=== PATIENT | female | born 1970 | race Caucasian/White ===

== ENCOUNTER → 2019-01-07 | Outpatient (CLI) | payer BC | LOC: RAD 12:09 | DX: Z12.31 Encounter for screening mammogram for malignant neoplasm of breast (principal); M47.812 Spondylosis without myelopathy or radiculopathy, cervical region; M25.78 Osteophyte, vertebrae; M48.02 Spinal stenosis, cervical region; M25.531 Pain in right wrist; M54.5 Low back pain; V89.2XXA Person injured in unspecified motor-vehicle accident, traffic, initial encounter ==

== ENCOUNTER → 2019-01-20 | Outpatient (CLI) | payer BC | LOC: MRI 10:05 | DX: M50.121 Cervical disc disorder at C4-C5 level with radiculopathy (principal); M48.02 Spinal stenosis, cervical region ==

== ENCOUNTER → 2019-02-10 | Outpatient (CLI) | payer BC ==
[~2019-02-10] VITALS: Ht 160 cm; Wt 59.0 kg
[~2019-02-10] MED LIST: HYDROXYZINE HCL25 M1 PO; NALTREXONE HCL50 MG PO; NEURONTIN 300300 M1 PO; OMEPRAZOLE40 MG PO; SERTRALINE HCL100 MG PO; TRAZODONE HCL100 MG PO
[2019-02-10 10:10] VITALS: BP 112/76
--- NOTE | 2019-02-10 10:39 | NUR ---
Pain Clinic Assessment: 1. History of Osteoarthritis: NONE History of Rheumatoid Arthritis: NONE 2. Height: 5 ft. 3 in. 160.0 cm. Weight: 130.0 lb. oz. 58.968 kg. Patient's BMI: 23.0 3. Vital Signs: BP: 112/76 Pulse: 70 Resp: 12 Temp: 02 Sat: 100 ECG Mon: 4. Pain Intensity: 8 5. Fall Risk: Dizziness: Y Needs help standing or walking: N Fallen in the last 3 months: N Fall risk comments: 6. Patient on Blood Thinner: None 7. History of Hypertension: Y 8. Opioid Therapy greater than 6 weeks: N Opiate Contract Signed: 9. Risk Assessment Tool Provided: 10. Functional Assessment Tool: 11. Recreational Drug Use: Past greater than 3 mos Drug Type: MJ Tobacco Use: Former Smoker Tobacco Type: Cigarettes Amount or Packs/day: How Many Years: Alcohol Use: Past use Frequency: Quant:
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
== END ==
LOC: PAIN 06:39
DX: M50.123 Cervical disc disorder at C6-C7 level with radiculopathy (principal); M47.22 Other spondylosis with radiculopathy, cervical region; G89.4 Chronic pain syndrome; I10 Essential (primary) hypertension; K21.9 Gastro-esophageal reflux disease without esophagitis; Z79.899 Other long term (current) drug therapy; Z88.1 Allergy status to other antibiotic agents; Z87.11 Personal history of peptic ulcer disease

== ENCOUNTER → 2019-04-21 | Outpatient (CLI) | payer BC ==
[~2019-04-21] VITALS: Ht 160 cm; Wt 63.3 kg
[~2019-04-21] MED LIST changes: +REMERON15 MG PO
[2019-04-21 12:44] VITALS: BP 121/80
--- NOTE | 2019-04-21 13:04 | NUR ---
Pain Clinic Assessment: 1. History of Osteoarthritis: NONE History of Rheumatoid Arthritis: NONE 2. Height: 5 ft. 3 in. 160.0 cm. Weight: 139.6 lb. oz. 63.322 kg. Patient's BMI: 24.7 3. Vital Signs: BP: 121/80 Pulse: 72 Resp: 16 Temp: 02 Sat: 98 ECG Mon: 4. Pain Intensity: 7-8 5. Fall Risk: Dizziness: N Needs help standing or walking: N Fallen in the last 3 months: N Fall risk comments: 6. Patient on Blood Thinner: None 7. History of Hypertension: Y 8. Opioid Therapy greater than 6 weeks: N Opiate Contract Signed: 9. Risk Assessment Tool Provided: 10. Functional Assessment Tool: 11. Recreational Drug Use: Past greater than 3 mos Drug Type: Tobacco Use: Former Smoker Tobacco Type: Amount or Packs/day: How Many Years: Alcohol Use: Past use Frequency: Quant:
--- NOTE | 2019-04-22 08:14 | HPC ---
[address] [address] PAIN MANAGEMENT CONSULTATION Name: SUMIT CLINE Room #: REG [facility]..#: [id number] Admission: 04/21/19 Attend Phys: Kalen Lopez DO Discharge: Date of : 74 Report #: [id number] THIS REPORT FOR: //name// CC: Kalen Summers MD DATE OF SERVICE: 04/21/2019 REFERRING PHYSICIAN: Gilbert Dyer MD CHIEF COMPLAINT: Bilateral upper extremity pain. HISTORY OF PRESENT ILLNESS: As you know, the patient is a 49-year-old female who has returned today in followup visit requesting to undergo cervical epidural injection under fluoroscopic guidance. The patient indicates a pain level of 8-9/10 today. She states pain is constant, shooting, numbness, tingling, pins and needles and electrical in sensation, exacerbated with activity, improves with stretching. She was last seen in our clinic on 02/10/2019, diagnosed with cervical radiculopathy secondary to the displacement of a cervical intervertebral disk. She also suffers from cervical spondylosis with radicular symptoms leading to axial cervical spine pain. At that visit, we discussed treatment options, she chose to consider those options before moving forward. She returns today requesting to undergo this proposed cervical epidural injection to address her 8/10 pain. ALLERGIES: AZITHROMYCIN. CURRENT MEDICATIONS: Mirtazapine, omeprazole, sertraline, gabapentin, trazodone, naltrexone, hydroxyzine. SOCIAL HISTORY: The patient denies tobacco, alcohol, IV or illicit drug use. She has been out of workforce since 2003, not receiving workmen's compensation. She is not receiving disability income and reports she is not in litigation in regards to pain. IMAGING: There is no new imaging available. PHYSICAL EXAMINATION: VITAL SIGNS: Blood pressure 121/80, pulse is 72, respiratory rate 16 and unlabored. The patient is 98% on room air. Height 5 feet 3 inches tall, weight 139.6 pounds, BMI calculated 24.7. GENERAL: Well-developed, well-nourished, well-hydrated 49-year-old female, appearing her stated age. Pain is rated at 7-8/10. HEENT: Normocephalic, atraumatic. Pupils equal, round, [place] [address] PAIN MANAGEMENT CONSULTATION Name: SUMIT CLINE Room #: REG G[facility] GilliamGenny#: [id number] Admission: 04/21/19 Attend Phys: Kalen Lopez DO Discharge: Date of : 74 Report #: [id number] EXTREMITIES: Show no clubbing, no cyanosis, and no edema. MUSCULOSKELETAL: Upper extremity strength appears equal and symmetrical 5/5. She is intact to light touch from C5-T1 dermatomes. Muscle bulk and tone equal and symmetrical in upper extremities. Spurling's test is equivocal. Tendinous reflexes are slightly increased on the right. ASSESSMENT: 1. Cervical radiculopathy. 2. Displacement of cervical intervertebral disk with radiculopathy. 3. Cervical spondylosis with radiculopathy. 4. Cervical degeneration. 5. Chronic intractable pain. PLAN: 1. The patient has returned today in followup visit requesting to undergo the cervical epidural injection proposed at our visit of 02/10/2019. The patient has considered her options and does wish to undergo the procedure today. I advised the patient of the risks and the benefits of a cervical epidural injection. These risks include but are not necessarily limited to bleeding, bruising, infection, worsening pain, no relief of pain, also risk of temporary or permanent muscle weakness, temporary or permanent nerve damage, possible paralysis, post-dural puncture headache and . The patient states understood and wished to proceed. 2. No medication changes made at today's visit. The patient will continue current medical therapy as previously prescribed. 3. We will see the patient back in followup visit on an as-needed basis for possible next in the series of cervical epidural injections. PROCEDURE NOTE DESCRIPTION OF PROCEDURE: C7-T1 cervical epidural steroid injection under fluoroscopic guidance. This is the first procedure of the first series that the patient is undergoing. After obtaining written consent, the patient was taken back to the fluoroscopy suite and placed in a prone position with separate pillows under chest and forehead to decrease cervical lordosis. The skin overlying the cervical area was prepped and draped in an aseptic fashion. The C7-T1 vertebral interspace was identified by AP fluoroscopy. The skin and subcutaneous tissue overlying the target site of injection was anesthetized using 3 mL of 1% lidocaine. A 20-gauge, 3.5-inch Tuohy needle was advanced under fluoroscopic guidance toward the epidural space using a midline approach. The epidural space was identified using a loss of resistance to air technique. After negative aspiration for heme or cerebrospinal fluid, a total of 1 mL of Omnipaque was [facility] [address] [place] [address] PAIN MANAGEMENT CONSULTATION Name: SUMIT CLINE [id number] Admission: 04/21/19 Attend Phys: Kalen Lopez DO Discharge: Date of : 74 Report #: [id number] injected. A cervical epidurogram was confirmed using AP and oblique fluoroscopy. After negative aspiration for heme or cerebrospinal fluid, 5 mL of a solution containing 2 mL, 40 mg per mL, 80 mg total triamcinolone and 3 mL of lidocaine 1% was injected in increments. Contrast spread was noted from posterior epidural space. The needle was then retracted approximately usp and the needle track was flushed with 1 mL of 1% lidocaine. There were no apparent new sensory deficits in the upper extremities present following the procedure. A sterile bandage was placed over the injection site. The heart rate, pulse oximetry and blood pressure were continuously monitored after the procedure. There were no apparent complications. The patient tolerated the procedure well and was carefully escorted in the recovery room in stable condition. After meeting discharge criteria, the patient was discharged home. <ELECTRONICALLY SIGNED> By: Kalen Lopez DO 04/22/19 0814 [id number] Kalen Lopez DO /nt
== END | disposition home or self-care (01) ==
LOC: PAIN 02-17 06:44
DX: M50.10 Cervical disc disorder with radiculopathy, unspecified cervical region (principal); M47.22 Other spondylosis with radiculopathy, cervical region; G89.29 Other chronic pain; Z88.8 Allergy status to other drugs, medicaments and biological substances; Z79.899 Other long term (current) drug therapy; Z98.890 Other specified postprocedural states; Z87.891 Personal history of nicotine dependence

== ENCOUNTER → 2019-06-02 | Outpatient (CLI) | payer BC ==
[~2019-06-02] VITALS: Ht 160 cm; Wt 59.3 kg
[~2019-06-02] MED LIST changes: +HYDROCHLOROTH12.5 M1 PO; +PRINIVIL20 MG PO
--- NOTE | ~2019-06-02 | HPC ---
[facility] [place] [address] PAIN MANAGEMENT CONSULTATION Name: SUMIT CLINE Room #: REG [facility] MSabine.#: [id number] Admission: 06/02/19 Attend Phys: Kalen Lopez DO Discharge: Date of : 74 Report #: [id number] THIS REPORT FOR: //name// CC: Kalen Summers MD DATE OF SERVICE: 06/02/2019 CHIEF COMPLAINT: Bilateral upper extremity pain, chronic neck pain. HISTORY OF PRESENT ILLNESS: As you know, the patient is a 49-year-old female who returns today in followup visit reporting a pain score of around 7/10. She last was seen in our clinic on 04/21/2019 undergoing a cervical epidural injection, which provided near 90% improvement in overall pain. She does report that she has had some increased vaginal bleeding after the injection and is being evaluated by her PCP. It is not unusual to have females at her age have increased bleeding with steroid exposures, though I recommend the patient follow up with Gynecology specifically for evaluation as there is a potential the patient has endometrial proliferation and needs to be evaluated more carefully. She returns today in followup visit requesting a cervical epidural injection under fluoroscopic guidance to address her recurrent neck pain. She indicates pain has progressively worsened. She states the pain is constant, shooting, numbness, tingling, pins and needles, electrical like sensation, exacerbated with activity, improves with stretching, and previous epidural injection. She returns with no injury, no trauma, requesting next in a series of epidural injections. ALLERGIES: ERYTHROMYCIN. CURRENT MEDICATIONS: Mirtazapine, omeprazole, sertraline, gabapentin, trazodone, naltrexone, hydroxyzine. SOCIAL HISTORY: The patient denies tobacco, alcohol, IV or illicit drug use. She has been out of workforce since 2003. She is unaccompanied today. IMAGING: There is no new imaging available. PHYSICAL EXAMINATION: VITAL SIGNS: Blood pressure 144/101, pulse is 87, respiratory rate 18 and unlabored. The patient is 97% on room air. Height 5 feet 3 inches tall, weighs 130.8 pounds, BMI calculated 23.2. GENERAL: Well-developed, well-nourished, well-hydrated 49-year-old female appearing stated age, pain is rated around 7/10. HEENT: Normocephalic, atraumatic. Pupils equal, round, reactive to light. [address] [address] PAIN MANAGEMENT CONSULTATION Name: SUMIT CLINE [id number] Admission: 06/02/19 Attend Phys: Kalen Lopez DO Discharge: Date of : 74 Report #: [id number] EXTREMITIES: Show no clubbing, no cyanosis, and no edema. MUSCULOSKELETAL: Upper extremity strength is symmetrical 5/5, intact to light touch from C5-T1 dermatomes. Muscle bulk and tone equal and symmetrical in comparing upper extremities. Spurling's test is equivocal. ASSESSMENT: 1. Cervical radiculopathy. 2. Displacement of cervical intervertebral disk with radiculopathy. 3. Cervical spondylosis with radiculopathy. 4. Cervical degeneration. 5. Chronic intractable pain. 6. Essential hypertension. 7. Excessive vaginal bleeding. PLAN: 1. The patient has returned today in followup visit where we have discussed the effects of steroids on females of her age range. There is a potential that the patient has some endometrial proliferation and needs to be evaluated by Gynecology. The fact that the patient had a recurrence of spotting and bleeding from the vagina would indicate that there is likely some changes within her hormonal balance affected by the steroid medication. I did advise the patient that undergoing next in the series of epidural injections could cause further bleeding issues. If this is the case, the patient needs to follow up with Gynecology immediately. I do understand the primary care team is evaluating the patient, but gynecological evaluation is necessary. 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 2. The patient's blood pressure noted to be elevated today 147/101. This is not related to pain as her heart rate is not elevated. The patient will need to follow up with her PCP to make adjustments in her antihypertensive treatment. Blood pressure at our last visit was 121/80. Prior to that visit, the patient's blood pressure was 112/76. This does not appear to be stress related issue. She will need to follow up with her PCP. 3. The patient has been consented and wishes to undergo a cervical epidural injection under fluoroscopic guidance. She has been advised risks and benefits of the procedure. These risks include, but are not necessarily limited to bleeding, bruising, infection, worsening of pain, no relief of pain, also risk of temporary or permanent muscle weakness, temporary or permanent nerve damage, possible paralysis, post-dural puncture, headache and . The patient states she understood and wished to proceed. 4. No medication changes made at today's visit. The patient will continue current medical therapy as previously prescribed. 5. We will see the patient back in followup visit on an as needed basis for the third and final in the series of cervical epidural injections. PROCEDURE NOTE [address] [address] PAIN MANAGEMENT CONSULTATION Name: SUMIT CLINE Room #: REG GIL Rosario#: [id number] Admission: 06/02/19 Attend Phys: Kalen Lopez DO Discharge: Date of : 74 Report #: [id number] DESCRIPTION OF PROCEDURE: C7-T1 cervical epidural steroid injection under fluoroscopic guidance. This is the second procedure of the first series that the patient is undergoing. After obtaining written consent, the patient was taken back to the fluoroscopy suite and placed in a prone position with separate pillows under chest and forehead to decrease cervical lordosis. The skin overlying the cervical area was prepped and draped in an aseptic fashion. The C7-T1 vertebral interspace was identified by AP fluoroscopy. The skin and subcutaneous tissue overlying the target site of injection was anesthetized using 3 mL of 1% lidocaine. A 20-gauge 3-1/2 inch Tuohy needle was advanced under fluoroscopic guidance toward the epidural space using a midline approach. The epidural space was identified using a loss of resistance to air technique. After negative aspiration for heme or cerebrospinal fluid, a total of 1 mL of Omnipaque was injected. A cervical epidurogram was confirmed using AP and oblique fluoroscopy. After negative aspiration for heme or cerebrospinal fluid, 5 mL of a solution containing 2 mL 40 mg per mL, 80 mg total triamcinolone along with 3 mL of lidocaine 1% was injected in increments. Contrast spread was noted from posterior epidural space. The needle was then retracted approximately fpc and the needle track was flushed with 1 mL of 1% lidocaine. There were no apparent new sensory deficits in the upper extremities present following the procedure. A sterile bandage was placed over the injection site. The heart rate, pulse oximetry and blood pressure were continuously monitored after the procedure. There were no complications. The patient tolerated the procedure well and was carefully escorted in the recovery room in stable condition. After meeting discharge criteria, the patient was discharged home. By: [id number] Kalen Lopez DO /nt
[2019-06-02 12:33] VITALS: BP 144/101
--- NOTE | 2019-06-02 12:41 | NUR ---
Pain Clinic Assessment: 1. History of Osteoarthritis: NONE History of Rheumatoid Arthritis: NONE 2. Height: 5 ft. 3 in. 160.0 cm. Weight: 130.8 lb. oz. 59.330 kg. Patient's BMI: 23.2 3. Vital Signs: BP: 144/101 Pulse: 87 Resp: 18 Temp: 02 Sat: 97 ECG Mon: 4. Pain Intensity: 7 5. Fall Risk: Dizziness: N Needs help standing or walking: N Fallen in the last 3 months: N Fall risk comments: 6. Patient on Blood Thinner: None 7. History of Hypertension: Y 8. Opioid Therapy greater than 6 weeks: N Opiate Contract Signed: 9. Risk Assessment Tool Provided: 10. Functional Assessment Tool: 11. Recreational Drug Use: Past greater than 3 mos Drug Type: Tobacco Use: Former Smoker Tobacco Type: Amount or Packs/day: How Many Years: Alcohol Use: Past use Frequency: Quant:
[2019-06-02 13:00] VITALS: BP 138/94
== END | disposition home or self-care (01) ==
LOC: PAIN 06:57
DX: M47.22 Other spondylosis with radiculopathy, cervical region (principal); M50.30 Other cervical disc degeneration, unspecified cervical region; M50.20 Other cervical disc displacement, unspecified cervical region; G89.29 Other chronic pain; I10 Essential (primary) hypertension; Z88.8 Allergy status to other drugs, medicaments and biological substances; Z79.899 Other long term (current) drug therapy; Z98.890 Other specified postprocedural states

== ENCOUNTER 2020-01-21 13:38 | Emergency (ER) | payer OTHER ==
[~2020-01-21] VITALS: Ht 157.5 cm; Wt 56.2 kg
[2020-01-21 13:46] VITALS: BP 172/93
[2020-01-21] MEDS ORDERED: NORCO 7.5-3251 EACH PO (14:17)
[2020-01-21] MEDS ORDERED: PREDNISONE 20 M20 MG PO (14:17)
[2020-01-21] MEDS ORDERED: ZOLOFT100 MG PO (14:20)
[2020-01-21] MEDS ORDERED: HYDROCHLOROTH12.5 M1 PO (14:20)
== END 2020-01-21 14:35 | disposition home or self-care (01) ==
LOC: ER 13:38
DX: M54.12 Radiculopathy, cervical region (principal); I10 Essential (primary) hypertension; F31.9 Bipolar disorder, unspecified; F41.9 Anxiety disorder, unspecified; Z76.0 Encounter for issue of repeat prescription; Z90.89 Acquired absence of other organs; Z98.890 Other specified postprocedural states; Z79.899 Other long term (current) drug therapy; Z88.1 Allergy status to other antibiotic agents

== ENCOUNTER → 2020-02-02 | Outpatient (CLI) | payer OTHER ==
[~2020-02-02] VITALS: Ht 160 cm; Wt 54.9 kg
[~2020-02-02] MED LIST changes: +NORCO 7.5-3251 EACH PO; +PREDNISONE 20 M20 MG PO; +ZOLOFT100 MG PO
[2020-02-02 10:35] VITALS: BP 144/97
--- NOTE | 2020-02-02 10:49 | NUR ---
Pain Clinic Assessment: 1. History of Osteoarthritis: NONE History of Rheumatoid Arthritis: NONE 2. Height: 5 ft. 3 in. 160.0 cm. Weight: 121.0 lb. oz. 54.885 kg. Patient's BMI: 21.4 3. Vital Signs: BP: 144/97 Pulse: 70 Resp: 14 Temp: 02 Sat: 100 ECG Mon: 4. Pain Intensity: 9 5. Fall Risk: Dizziness: N Needs help standing or walking: N Fallen in the last 3 months: N Fall risk comments: 6. Patient on Blood Thinner: None 7. History of Hypertension: Y 8. Opioid Therapy greater than 6 weeks: N Opiate Contract Signed: 9. Risk Assessment Tool Provided: 10. Functional Assessment Tool: 11. Recreational Drug Use: Past greater than 3 mos Drug Type: M Tobacco Use: Current Every Day Smoker Tobacco Type: Cigarettes Amount or Packs/day: 1 How Many Years: 20 Alcohol Use: Yes Frequency: Daily Quant: WINE
--- NOTE | 2020-02-03 12:32 | HPC ---
[facility] [address] [place] [address] PAIN MANAGEMENT CONSULTATION Name: SUMIT NAYAK Room #: REG GIL M.Jonathan.#: [id number] Admission: 02/02/20 Attend Phys: Kalen Lopez DO Discharge: Date of : 74 Report #: [id number] THIS REPORT FOR: cc: Bladimir Summers MD, Neal A. MD Johnson, James E. DO ~ DATE OF SERVICE: 02/02/2020 CHIEF COMPLAINT: Neck pain, bilateral upper extremity pain. HISTORY OF PRESENT ILLNESS: As you know, the patient is a 49-year-old female who has returned today in followup visit to undergo next in the series of cervical epidural injections under fluoroscopic guidance. She is placing her current pain score 9/10. She states her pain is constant, shooting, numbness, tingling, electrical like in sensation. She states pain is exacerbated with activity, improves with stretching. She reports the previous cervical epidural injection gave 90% improvement in overall pain lasting for easily over a month with a slow and progressive return of symptoms. She returns today in followup visit requesting to undergo cervical epidural injection under fluoroscopic guidance to address her cervical radicular symptoms. ALLERGIES: AZITHROMYCIN. CURRENT MEDICATIONS: Hydrochlorothiazide 12.5 mg once a day, sertraline 100 mg 2 tabs per day, hydrocodone/acetaminophen 7.5/325 one tab every 6 hours p.r.n. for pain, lisinopril 20 mg per day, mirtazapine 15 mg p.o. at bedtime, omeprazole 40 mg per day, gabapentin 300 mg 4 times a day, trazodone 100 mg p.o. at bedtime, hydroxyzine 25 mg 3 times a day. SOCIAL HISTORY: The patient denies tobacco, alcohol, IV or illicit drug use. She is working, not receiving workmen's compensation nor is she trying to obtain discrete benefits. She is accompanied by a friend who is present in room today. IMAGING: No new imaging available. PHYSICAL EXAMINATION: VITAL SIGNS: Blood pressure 144/97, pulse 70, respiratory rate 14 and unlabored. The patient is 100% on room air. Height 5 feet 3 inches tall, weight 121 pounds, BMI calculated 21.4. GENERAL: Well-developed, well-nourished, well-hydrated 49-year-old female appearing stated age. She is in no acute distress, awake, alert and oriented x 3, pain is rated at 9/10. HEENT: Normocephalic, atraumatic. Extraocular muscles are intact. NEUROLOGIC: Speech is fluent. The patient deemed a good historian. EXTREMITIES: Show no clubbing, no cyanosis, and no edema. [address] [address] PAIN MANAGEMENT CONSULTATION Name: SUMIT NAYAK Room #: REG CLI [facility]#: [id number] Admission: 02/02/20 Attend Phys: Kalen Lopez DO Discharge: Date of : 74 Report #: [id number] MUSCULOSKELETAL: Upper extremity strength appears symmetrical 5/5. Muscle bulk and tone equal and symmetrical in comparing left upper extremity to right. Spurling's test is equivocal. She is intact to light touch from C5 through T1 dermatomes. ASSESSMENT: 1. Cervical radiculopathy. 2. Displacement of cervical intervertebral disk with radiculopathy. 3. Cervical spondylosis with radiculopathy. 4. Cervical degeneration. 5. Chronic intractable pain. PLAN: 1. The patient has returned today in followup visit having noted 90% improvement in overall pain with the cervical epidural injection provided at our last visit. Unfortunately, her symptoms have begun to return without inciting injury or trauma. She places pain today at level of 9/10. She returns requesting next in the series of cervical epidural injections to address cervical radicular symptoms. The patient has been advised risks and benefits of a cervical epidural injection. These risks include but are not necessarily limited to bleeding, bruising, infection, worsening pain, no relief of pain, also risk of temporary or permanent muscle weakness, temporary or permanent nerve damage, possible paralysis and . The patient states understood and wished to proceed. 2. No medication changes made at today's visit. We did discuss the possibility of increasing the patient's gabapentin to help with neuropathic pain. The patient is resistant to make that adjustment. She is stabilized on the medication for her underlying anxiety. A slow escalation of this medication might be recommended based on any potential recurrence of radicular symptoms. We will discuss this again at followup visit. 3. We will see the patient back in followup visit on an as needed basis. We are hopeful the patient will see good and prolonged benefit with today's cervical epidural injection. DESCRIPTION OF PROCEDURE: C7-T1 cervical epidural steroid injection under fluoroscopic guidance. This is the first procedure of the second series that the patient is undergoing. After obtaining written consent, the patient was taken back to the fluoroscopy suite and placed in a prone position with separate pillows under chest to support decreased cervical lordosis. The skin overlying the cervical area was prepped and draped in an aseptic fashion. The C7-T1 vertebral interspace was identified by AP fluoroscopy. The skin and subcutaneous tissue overlying the target site of injection was anesthetized using 3 mL of 1% lidocaine. [address] [address] PAIN MANAGEMENT CONSULTATION Name: SUMIT NAYAK Room #: REG [facility].#: [id number] Admission: 02/02/20 Attend Phys: Kalen Lopez DO Discharge: Date of : 74 Report #: [id number] A 20-gauge 3.5 inch Tuohy needle was advanced under fluoroscopic guidance toward the epidural space using a parasagittal approach. The epidural space was identified using a loss of resistance to air technique. After negative aspiration for heme or cerebrospinal fluid, a total of 1 mL of Omnipaque was injected. A cervical epidurogram was confirmed using AP and oblique fluoroscopy. After negative aspiration for heme or cerebrospinal fluid, 5 mL of a solution containing 2 mL 40 mg/mL 80 mg total triamcinolone along with 3 mL of lidocaine 1% was injected in increments. Contrast spread was noted from posterior epidural space. The needle was then retracted approximately longterm and the needle track was flushed with 1 mL of 1% lidocaine. There were no apparent new sensory deficits in the upper extremities present following the procedure. A sterile bandage was placed over the injection site. The heart rate, pulse oximetry and blood pressure were continuously monitored after the procedure. There were no apparent complications. The patient tolerated the procedure well and was carefully escorted in the recovery room in stable condition. After meeting discharge criteria, the patient was discharged home. <ELECTRONICALLY SIGNED> By: Kalen Lopez DO 02/03/20 1232 [id number] Kalen Lopez DO /emilia
== END | disposition home or self-care (01) ==
LOC: PAIN 06:49
DX: M50.10 Cervical disc disorder with radiculopathy, unspecified cervical region (principal); M47.22 Other spondylosis with radiculopathy, cervical region; G89.29 Other chronic pain; F17.210 Nicotine dependence, cigarettes, uncomplicated; Z98.890 Other specified postprocedural states; Z79.899 Other long term (current) drug therapy; Z88.8 Allergy status to other drugs, medicaments and biological substances

== ENCOUNTER 2021-01-09 13:21 | Emergency (ER) | payer OTHER ==
[~2021-01-09] VITALS: Ht 157.5 cm; Wt 56.7 kg
[2021-01-09] MEDS ORDERED: TIROSINT50 MCG PO (13:37)
[2021-01-09] MEDS ORDERED: HYDROCODON-ACE1 EAC7 PO (14:50)
[2021-01-09 15:20] VITALS: BP 117/81
== END 2021-01-09 15:20 | disposition home or self-care (01) ==
LOC: ER 13:21
DX: S90.31XA Contusion of right foot, initial encounter (principal); I10 Essential (primary) hypertension; F17.200 Nicotine dependence, unspecified, uncomplicated; Z88.8 Allergy status to other drugs, medicaments and biological substances; Z88.1 Allergy status to other antibiotic agents; W22.8XXA Striking against or struck by other objects, initial encounter; Y93.89 Activity, other specified; Y92.89 Other specified places as the place of occurrence of the external cause; Y99.8 Other external cause status